=== PATIENT | male | born 1995 | race African-American/Black ===

== ENCOUNTER 2017-01-28 11:14 | Emergency (ER) | payer SELFPAY ==
--- NOTE | 2017-01-28 13:32 | XRay Report ---
Left wrist: There is mild dorsal swelling. The bones, joints, and alignment appear intact. Bones are well-mineralized. Impression: Dorsal swelling. No fracture.
--- NOTE | 2017-01-28 14:57 | Emergency Department Report ---
ED Upper Extremity Inj HPI - General Chief Complaint: Fall Stated Complaint: LT HAND SPRAINED/FACE INJURY/LT KNEE Time Seen by Provider: 01/28/17 14:25 Source: patient Mode of arrival: Ambulatory Limitations: No Limitations - History of Present Illness Initial Comments: Patient presents today with left wrist and left knee pain after running with physical therapy. Patient is in the [employer]. He states he was running and his legs gave out on him from being tired he then tripped and hit the ground. He also states he hit the left side of his face on a barrier wall. He does have a small laceration to the left eyebrow with mild swelling. He denies loss of consciousness denies headache, nausea, dizziness. He states that he did get up right after the fall. MD Complaint: Injury to:: left, wrist -: Sudden Other Extremity Injury: Wrist: Left Other Injuries: LLE Place: other () Worsens With: movement of extremity Context: fall Associated Symptoms: denies other symptoms. denies: weakness, numbness, neck pain, nausea/vomiting - Related Data Home Medications Medication Instructions Recorded Confirmed Last Taken No Known Home Medications [No 01/28/17 01/28/17 Unknown Reported Home Medications] Allergies Allergy/AdvReac Type Severity Reaction Status Date / Time No Known Allergies Allergy Unverified 01/28/17 11:32 ED Review of Systems ROS: Stated complaint: LT HAND SPRAINED/FACE INJURY/LT KNEE Other details as noted in HPI Constitutional: denies: chills, fever Eyes: denies: eye pain, eye discharge, vision change ENT: denies: ear pain, throat pain Respiratory: denies: cough, shortness of breath, wheezing Cardiovascular: denies: chest pain, palpitations Gastrointestinal: denies: abdominal pain, nausea, diarrhea Genitourinary: denies: urgency, dysuria Musculoskeletal: as per HPI Skin: as per HPI. denies: rash, lesions Neurological: denies: headache, weakness, paresthesias ED Past Medical Hx - Past Medical History Previous Medical History?: No - Surgical History Past Surgical History?: No - Social History Smoking Status: Never Smoker Substance Use Type: Non Opiate Pain - Medications Home Medications: Home Medications Medication Instructions Recorded Confirmed Last Taken Type No Known Home Medications [No 01/28/17 01/28/17 Unknown History Reported Home Medications] ED Physical Exam - General Limitations: No Limitations General appearance: alert, in no apparent distress - Head Head exam: Present: atraumatic, normocephalic - Expanded Head Exam Expanded Head exam: Present: abrasion (left lateral eyebrow with mild swelling) - Eye Eye exam: Present: normal appearance, PERRL, EOMI - Expanded Eye Exam Expanded Eyelids: Normal Inspection: Left (bilateral normal) Pupils: Regular, Round: Bilateral, Reactive: Bilateral Sclera/Conjunctival: Normal Inspection: Bilateral - ENT ENT exam: Present: mucous membranes moist - Neck Neck exam: Present: normal inspection, full ROM. Absent: tenderness, lymphadenopathy - Respiratory Respiratory exam: Present: normal lung sounds bilaterally. Absent: respiratory distress, wheezes, rales, rhonchi - Cardiovascular Cardiovascular Exam: Present: regular rate, normal rhythm. Absent: systolic murmur, diastolic murmur, rubs, gallop - GI/Abdominal GI/Abdominal exam: Present: soft, normal bowel sounds. Absent: tenderness - Expanded Upper Extremity Exam Left Shoulder Exam: Present: normal inspection, full ROM. Absent: tenderness, swelling Upper Arm exam: Present: normal inspection, full ROM. Absent: tenderness, swelling Elbow exam: Present: normal inspection, full ROM. Absent: tenderness, swelling Forearm Wrist exam: Present: normal inspection, full ROM, tenderness (Limited range of motion with flexion and extension without pain), swelling (dorsal swelling) Neuro motor exam: Present: wrist extension intact, thumb opposition intact, thumb adduction intact, fingers 2-5 abduction intact Neurosensory exam: Present: radial nerve intact, ulnar nerve intact Vascular: Present: normal capillary refill. Absent: vascular compromise - Back Exam Back exam: Present: normal inspection, full ROM. Absent: tenderness - Neurological Exam Neurological exam: Present: alert, oriented X3, CN II-XII intact - Psychiatric Psychiatric exam: Present: normal affect, normal mood - Skin Skin exam: Present: warm, dry, intact, normal color. Absent: rash ED Course Vital Signs 01/28/17 11:33 Temperature 98.4 F Pulse Rate 58 L Blood Pressure 119/65 O2 Sat by Pulse 100 Oximetry ED Medical Decision Making - Medical Decision Making Patient presents after falling while doing physical training in the [employer]. His x -ray of left wrist is negative. He declines a x-ray of his left knee. His physical exam especially his neurology exam is grossly normal. No loss of consciousness. I did not see if further need to CT head or neck as there is no swelling or limited range of motion. Patient declines pain medication at this time, he states it is tolerable. - Differential Diagnosis wrist fracture, knee fracture, soft tissue swelling Critical Care Time: No Critical care attestation.: If time is entered above; I have spent that time in minutes in the direct care of this critically ill patient, excluding procedure time. ED Disposition Clinical Impression: Soft tissue injury of left wrist, Left wrist sprain Disposition: DISCHARGED TO HOME OR SELFCARE Is pt being admited?: No Does the pt Need Aspirin: No Condition: Stable Instructions: Wrist Sprain (ED) Additional Instructions: Please follow up in the ED if swelling increases, pain increases, pain unrelieved by [id number] medication, change of level of consciousness, headache, nausea, vomiting, dizziness. Rest, Ice, Ibuprofen 800mg otc every 8 hours as needed for pain Referrals: PRIMARY CARE, [Primary Care Provider] - 3-5 Days Forms: Work/School Release Form(ED) Time of Disposition: 15:02
[2017-01-28 15:13] VITALS: BP 118/78
== END 2017-01-28 15:14 | disposition home or self-care (01) ==
LOC: ED 11:14
DX: S63.502A Unspecified sprain of left wrist, initial encounter (principal); S00.212A Abrasion of left eyelid and periocular area, initial encounter; W01.198A Fall on same level from slipping, tripping and stumbling with subsequent striking against other object, initial encounter; Y93.02 Activity, running; Y99.9 Unspecified external cause status; Y92.89 Other specified places as the place of occurrence of the external cause